=== PATIENT | female | born 1970 | race Caucasian/White ===

== ENCOUNTER → 2017-05-30 | Outpatient (CLI) | payer OTHER ==
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
== END | disposition home or self-care (01) ==
LOC: RADMRIMAIN 18:11
PROVIDERS: ATTEND Family Medicine
DX: M43.12 Spondylolisthesis, cervical region (principal); M50.221 Other cervical disc displacement at C4-C5 level; M48.061 Spinal stenosis, lumbar region without neurogenic claudication; M51.36 Other intervertebral disc degeneration, lumbar region; M47.817 Spondylosis without myelopathy or radiculopathy, lumbosacral region; M46.96 Unspecified inflammatory spondylopathy, lumbar region
CPT/HCPCS: 72141; 72148

== ENCOUNTER → 2017-10-25 | Outpatient (CLI) | payer OTHER ==
--- NOTE | 2017-10-25 17:45 | PN ---
PROGRESS NOTE DATE OF SERVICE: 10/25/2017 A 47-year-old lady who has been followed in sleep center for treatment of obstructive sleep apnea-hypopnea syndrome. The patient continues to use her machine successfully every night, although sometimes she mentions she may have episodes of snoring while she is using her CPAP. I checked her CPAP unit, which showed usage for 29/30 nights and more than 4 hours 23/30 nights. Average usage 5.4 hours. Pressure in the machine 7 cm of water. Leak is 17 L/minute which is acceptable. Apnea-hypopnea index reading for the last month is only 1.5, which is totally perfect. The patient indicated that sometimes she possibly opens her mouth and wakes up and goes to the restroom at that time and then she may drink water, smoke and that interrupts her sleep for quite some period of time. MEDICATIONS: 1. Lexapro. 2. Percocet. 3. MiraLAX. 4. Latuda. 5. Ditropan. 6. Detrol. 7. Ziac. 8. Trazodone. 9. Omeprazole. 10.Cimetidine. 11.Ibuprofen. 12.DOK. 13.Adderall. Charlton Sleepiness Scale today is 13. PHYSICAL EXAMINATION: GENERAL Patient in no distress. VITAL SIGNS BP 121/55, HR 70, RR 18, height 5 feet 6 inches, weight 217.8, BMI 35.0, temperature 98.1, oxygen saturation at room air 97%. Patient increased her show weight from 179 pounds up to 217 pounds, which is about 38 pounds. HEENT PERRLA, EOMI, evaluation of oropharynx showed tongue protrudes midline, moderately low position of soft palate. Neck Supple, no JVD. Thyroid is not palpable. LUNGS Clear to percussion and to auscultation. Good air exchange. No wheezing or rhonchi. HEART S1, S2 regular. No murmurs, gallops, or rubs. ABDOMEN Slightly obese, soft and nontender. Bowel sounds are present. No organomegaly appreciated. EXTREMITIES No clubbing or cyanosis. DISTILLERY MANAGER Awake, alert, and oriented X3. Cranial nerves 2 to 7 intact. There is no fasciculation or atrophy. noted. No focal deficits observed. IMPRESSION: 1. Obstructive sleep apnea-hypopnea syndrome on control with CPAP at 7 cm of water. Patient demonstrated good compliance with treatment, benefitting from treatment. 2. Mild obesity. 3. Hypertension. 4. Back problems. 5. Neck problems. 6. History of migraines. 7. Status post cholecystectomy. 8. Smoker for about 32 pack years. PLAN: 1. Prescription for all necessary CPAP supplies, including nasal pillow mask, tube, filters. We will add a chinstrap for the treatment. 2. Losing weight. 3. Patient will continue to use his CPAP equipment every night for the whole night. I want her to have a sleep schedule for 7-1/2 hours of sleep per night. 4. Losing weight. 5. No driving if feeling sleepiness. Thank you very much for allowing me to participate in management of your patient. Sincerely, Raghu Carcamo MD, PhD, FAASM Diplomat of [place] Board of Medical Specialties [place] Board of Internal Medicine [facility] [place] MMODL / TOMASN: [id number] /
== END | disposition home or self-care (01) ==
LOC: SLEEP 16:26
PROVIDERS: ATTEND Internal Medicine
DX: G47.33 Obstructive sleep apnea (adult) (pediatric) (principal); E66.9 Obesity, unspecified; I10 Essential (primary) hypertension; F17.200 Nicotine dependence, unspecified, uncomplicated; Z90.49 Acquired absence of other specified parts of digestive tract; Z68.35 Body mass index [BMI] 35.0-35.9, adult; Z79.891 Long term (current) use of opiate analgesic; Z79.899 Other long term (current) drug therapy; Z79.1 Long term (current) use of non-steroidal anti-inflammatories (NSAID)

== ENCOUNTER 2019-07-28 | Emergency (ER) | payer OTHER | END 2019-07-28 15:41 | disposition home or self-care (01) | CPT/HCPCS: 87081; 87430; 87502; 99283; 99406 ==

== ENCOUNTER → 2022-02-23 | Outpatient (CLI) | payer OTHER ==
--- NOTE | 2022-02-24 16:03 | MM ---
Reason for Exam: Screening (asymptomatic). Last mammogram was performed 5 year(s) and 0 month(s) ago. Patient History: Menarche at age 11. First Full-Term at age 19. Perimenopausal. Patient has history of breast feeding. Hormonal Contraceptives, from age 13 until age 24. Maternal aunt had breast cancer. Maternal aunt had breast cancer. Risk Values: Radha 5 year model risk: 0.8%. NCI Lifetime model risk: 6.9%. Prior Study Comparison: 03/09/2017 Bilateral Screening Mammogram, [facility]. Tissue Density: The breast tissue is heterogeneously dense. This may lower the sensitivity of mammography. Findings: Analyzed By CAD. Scattered benign round calcifications are present. No suspicious groups of microcalcifications, spiculated or lobular masses, architectural distortion or other secondary signs of malignancy are mammographically apparent. Overall Assessment: Benign, BI-RAD 2 Management: Screening Mammogram of both breasts in 1 year. A negative mammogram report should not preclude additional follow up of suspicious palpable abnormalities. Patient should continue monthly self breast exam. A clinical breast exam by your physician is recommended on an annual basis and results should be correlated with mammographic findings. Electronically signed and approved by: Gary Del Real D.O. Radiologis
== END | disposition home or self-care (01) ==
LOC: RADMAMWWP 09:51
PROVIDERS: ATTEND Family Medicine
DX: Z12.31 Encounter for screening mammogram for malignant neoplasm of breast (principal)
CPT/HCPCS: 77063; 77067

== ENCOUNTER → 2023-11-20 | Outpatient (CLI) | payer OTHER ==
--- NOTE | 2023-11-20 11:53 | US ---
EXAMINATION TYPE: US abdomen complete DATE OF EXAM: 11/20/2023 COMPARISON: NONE CLINICAL INDICATION: Female, 53 years old with history of R79.89 OTHER SPECIFIED ABNORMAL FINDINGS OF BLOOD; Fatty liver GB removed TECHNIQUE: Multiple sonographic images of the abdomen are obtained. FINDINGS: EXAM MEASUREMENTS: Liver Length: 20.7 cm Gallbladder Wall: Surgically absent CBD: .8 cm Spleen: 11.2 cm Right Kidney: 11.7 x 4.9 x 5.1 cm Left Kidney: 10.8 x 4.3 x 4.4 cm BUSINESS INTELLIGENCE DEVELOPER NOTES: Pancreas: Obscured by bowel gas Liver: Increased attenuation Gallbladder: Surgically absent Evidence for sonographic Johnson's sign: No CBD: wnl Spleen: wnl Right Kidney: No hydronephrosis or masses seen Left Kidney: No hydronephrosis or masses seen Upper IVC: wnl Abd Aorta: wnl The liver is homogenous increased echotexture, no dilated ducts masses or cystic structures. The int rahepatic portion of the IVC and proximal abdominal aorta are within normal limits. There is no evid ence of cholelithiasis. Common bile duct is unremarkable. The visualized portions of the pancreas a re homogenous. The spleen is unremarkable. Kidneys are symmetric and free of hydronephrosis. No re nal lesions are seen. IMPRESSION: 1. No evidence for acute process 2. Hepatic steatosis.
== END | disposition home or self-care (01) ==
LOC: RADUSWWP 08:55
PROVIDERS: ATTEND Family Medicine
DX: K76.0 Fatty (change of) liver, not elsewhere classified (principal); R79.89 Other specified abnormal findings of blood chemistry
CPT/HCPCS: 76700

== ENCOUNTER → 2023-11-20 | Outpatient (CLI) | payer OTHER ==
--- NOTE | 2023-11-21 22:24 | CTL ---
EXAMINATION TYPE: CT Low Dose Lung DATE OF EXAM ORDERED: 11/20/2023 HISTORY: . Lung cancer screening CT DLP: 140.[address] CTDI: 4.3 mGy Automated exposure control for dose reduction was used. SCREENING VISIT: Initial COMPARISON: None TECHNIQUE: Low dose computed tomography scan was performed through the chest at 1 mm thick sections a nd reconstructed images in the coronal plane at [address] DIAGNOSTIC QUALITY: Satisfactory FINDINGS: LUNG NODULES: None. LUNGS: COPD: Severity: None Fibrosis: Severity: None Lymph nodes: None Other findings: None RIGHT PLEURAL SPACE: Effusion: None Calcification: None Thickening: None Pneumothorax: None LEFT PLEURAL SPACE: Effusion: None Calcification: None Thickening: None Pneumothorax: None HEART: Other: Ascending thoracic aorta at the level the main pulmonary artery measures 3.5 cm. The main pul monary artery at the bifurcation measures 2.9 cm. Heart Size: Normal Coronary calcification: Health Pericardial effusion: None OTHER FINDINGS: Upper abdomen: Normal Bony thorax: Normal Supraclavicular region: Normal IMPRESSION: No suspicious changes to suggest primary or metastatic neoplasm. FOLLOW UP CT CHEST RECOMMENDATION: Low dose CT chest [address] LUNG RAD: Lung-Rad 1 Negative
--- NOTE | 2023-11-28 21:49 | MM ---
Reason for Exam: Screening (asymptomatic). Last mammogram was performed 1 year(s) and 9 month(s) ago. Patient History: Menarche at age 11. First Full-Term at age 19. Perimenopausal. Patient has history of breast feeding. Hormonal Contraceptives, from age 13 until age 24. Maternal aunt had breast cancer. Maternal aunt had breast cancer. Risk Values: Radha 5 year model risk: 0.9%. NCI Lifetime model risk: 6.8%. Prior Study Comparison: 03/09/2017 Bilateral Screening Mammogram, [facility]. 02/23/2022 Bilateral MG 3D screening mammo w/cad, [facility]. Tissue Density: The breasts are heterogeneously dense, which may obscure small masses. Findings: Analyzed By CAD. Increased global asymmetry left upper outer quadrant middle to posterior depth for which further evaluation is recommended. Otherwise, no significant change. Overall Assessment: Incomplete: need additional imaging evaluation, BI-RAD 0 Management: Special View Mammogram of the left breast. Diagnostic Breast Ultrasound of the left breast. . [facility] will attempt to contact patient to return for supplemental views and ultrasound if indicated. Electronically signed and approved by: Omaira Haq M.D. Radiologist
== END | disposition home or self-care (01) ==
LOC: RADMAMWWP 08:57
PROVIDERS: ATTEND Family Medicine
DX: Z12.31 Encounter for screening mammogram for malignant neoplasm of breast (principal); Z12.2 Encounter for screening for malignant neoplasm of respiratory organs; Z87.891 Personal history of nicotine dependence; R92.333 Mammographic heterogeneous density, bilateral breasts; Z80.3 Family history of malignant neoplasm of breast
CPT/HCPCS: 71271; 77063; 77067

== ENCOUNTER → 2023-12-03 | Outpatient (CLI) | payer OTHER ==
--- NOTE | 2023-12-03 14:23 | MM ---
Reason for Exam: Additional evaluation requested from abnormal screening. Last screening mammogram was performed less than 1 month ago. Patient History: Menarche at age 11. First Full-Term at age 19. Perimenopausal. Patient has history of breast feeding. Hormonal Contraceptives, from age 13 until age 24. Maternal aunt had breast cancer. Maternal aunt had breast cancer. Risk Values: Radha 5 year model risk: 0.9%. NCI Lifetime model risk: 6.8%. Prior Study Comparison: 03/09/2017 Bilateral Screening Mammogram, [facility]. 02/23/2022 Bilateral MG 3D screening mammo w/cad, [facility]. 11/20/2023 Bilateral MG 3D screening mammo w/cad, [facility]. Tissue Density: Left: The breasts are heterogeneously dense, which may obscure small masses. Findings: Analyzed By CAD. Asymmetric glandular tissue far upper outer left breast does persist. No evidence for distortion or microcalcifications. Overall Assessment: Incomplete: need additional imaging evaluation, BI-RAD 0 Management: Diagnostic Breast Ultrasound of the left breast. . Results were given to the patient verbally at the time of exam. Patient should continue monthly self-breast exams. A clinical breast exam by your physician is recommended on an annual basis. This exam should not preclude additional follow-up of suspicious palpable abnormalities. Note on Radha scores and lifetime risk: 1. A Radha score greater than 3% is considered moderate risk. If this is the case, consider specialist referral to assess eligibility for a risk reducing agent. 2. If overall lifetime risk for the development of breast cancer is 20% or higher, the patient may qualify for future screening with alternating mammogram and breast MRI. Electronically signed and approved by: Epifanio Vargas M.D. Radiologis
--- NOTE | 2023-12-03 14:44 | USB ---
Reason for Exam: Additional evaluation requested from abnormal screening. Patient History: Menarche at age 11. First Full-Term at age 19. Perimenopausal. Patient has history of breast feeding. Hormonal Contraceptives, from age 13 until age 24. Maternal aunt had breast cancer. Maternal aunt had breast cancer. Risk Values: Radha 5 year model risk: 0.9%. NCI Lifetime model risk: 6.8%. Technique: Method: Targeted. Prior Study Comparison: 03/09/2017 Bilateral Screening Mammogram, [facility]. 02/23/2022 Bilateral MG 3D screening mammo w/cad, [facility]. 11/20/2023 Bilateral MG 3D screening mammo w/cad, [facility]. Findings: The upper outer quadrant of the left breast, the axilla of the left breast and the retroareolar of the left breast were scanned. No solid or cystic masses are identified.. Overall Assessment: Probably benign, BI-RAD 3 Management: Diagnostic Mammogram of the left breast in 6 months. A clinical breast exam by your physician is recommended on an annual basis and results should be correlated with mammographic findings. This exam should not preclude additional follow-up of suspicious palpable abnormalities. Results were given to the patient verbally at the time of exam. Electronically signed and approved by: Epifanio Vargas M.D. Radiologis
== END | disposition home or self-care (01) ==
LOC: RADMAMWWP 13:37
PROVIDERS: ATTEND Family Medicine
DX: R92.332 Mammographic heterogeneous density, left breast (principal); R92.8 Other abnormal and inconclusive findings on diagnostic imaging of breast; Z80.3 Family history of malignant neoplasm of breast
CPT/HCPCS: 77065; 76642; G0279; 77061